=== PATIENT | female | born 1940 | race Caucasian/White ===

== ENCOUNTER 2024-10-21 15:15 | Emergency (ER) | payer MEDICARE, BC, SELFPAY ==
[2024-10-21 15:27] VITALS: BP 136/113
--- NOTE | 2024-10-21 15:36 | ED.GENMED ---
ED Provider Triage
<Coby Velázquez PA-C - Last Filed: 10/22/24 10:01>
-
Patient seen by provider in Triage?: Seen in Triage
Attestation: A medical screening examination has been initiated by a qualified medical provider. Based on the assessment performed at this time, it has been determined that an emergent medical condition may exist and the patient has been informed
that further medical evaluation and possible additional diagnostic testing may be needed.
HPI: 84yoF here for constipation. No BM x 2 days. Visiting nurse called PCP for meds but PCP told her to come here. Nothing OTC tried. Hx of dementia. Denies pain at this time.
GENERAL: Alert , in no apparent distress
EYE: No visual abnormalities.
NECK: Trachea midline
ENT: No visible abnormalities.
LUNGS: No acute respiratory distress
NEUROLOGICAL: Alert and oriented
SKIN: Skin intact. No visible changes.
MUSCULOSKELETAL: Moving extremities normally
PSYCH: Normal and appropriate interaction.
This is a medical evaluation conducted in person to initiate diagnostic evaluation and provide initial therapeutics. Please see further documentation by the treating clinician.
Will defer labs/imaging in triage given lack of complaints.
History of Present Illness
<Coby Velázquez PA-C - Last Filed: 10/22/24 10:01>
General
Chief Complaint: Bowel Problem
Time Seen by Provider: 10/21/24 16:56
<Merlene Nixon NP - Last Filed: 10/21/24 19:38>
General
Source: spouse
Exam Limitations: none
Nursing documentation reviewed up to this point in time: agreed with
History of Present Illness
History of Present Illness:
Patient to ED for suspected constipation Spouse states she has had constipation for the past year. She was recently discharged from rehab after falling and fracturing her ankle and wrist. He states he is not aware of constipation being an issue
wh8ile she was in rehab. He reports using MIralax daily but she has not passed stool in 4 days. No vomiting. Brought to ED for eval. She is pleasant and cooperative, in no distress.
Past History
<Merlene Nixon NP - Last Filed: 10/21/24 19:38>
Past History
ED Past Medical History: Psychiatric (dementia) and Other ( states she is not taking any medication. Reports she was taking lisinopril at one time but he no longer gives it to her.)
Review of Systems
<Merlene Nixon FARM MANAGEMENT TEACHER - Last Filed: 10/21/24 19:38>
Review of Systems
Allergies reviewed?: Yes
All Other Systems: ROS reviewed and negative except as documented in HPI and ROS
Constitutional: Reports no symptoms
EENT: Reports no symptoms
Respiratory: Reports no symptoms
Cardiac: Reports no symptoms
ABD/GI: Reports constipated
: Reports no symptoms
Musculoskeletal: Reports no symptoms
Skin: Reports no symptoms
Neurological: Reports no symptoms
Psychiatric: Reports no symptoms
Phy Exam
<Merlene Nixon NP - Last Filed: 10/21/24 19:38>
General Physical Exam
General Presentation: well appearing and no apparent distress
General age: appears stated age
General Skin: warm and dry
General Habitus: normal
General Mental: alert
General Hydration: appears well hydrated
Cardiovascular Exam
Cardiovascular Exam: regular rate/rhythm and no edema
Pulmonary Exam
Pulmonary Exam: lungs clear and no respiratory distress
Gastrointestinal Exam
Gastrointestinal Exam: normal bowel sounds, non tender, soft, no organomegaly and non distended
Rectal Exam: normal sphincter tone, hemorrhoids, no rectal mass and no stool
Musculoskeletal Exam
Musculoskeletal Exam: full ROM and neuro vasc intact
Skin Exam
Skin Exam: normal color, warm/dry and no rash
Psychiatric Exam
Psychiatric Exam: normal mood/affect
Course
<Coby Velázquez PA-C - Last Filed: 10/22/24 10:01>
Orders/Labs/Results
Orders:
Orders
10/21/24 17:12
Abdomen Xray - 1 View [CR Abdomen - 1 View] Urgent
Comment:
Reason For Exam: constipation
10/21/24 17:47
Complete Blood Count/With Diff Urgent
Comprehensive Metabolic Panel Urgent
10/21/24 19:03
Magnesium Citrate [Citroma] 300 ml PO ONCE ONE
Abnormal Lab Results
10/21/24
17:47
RBC 4.16 L 10^6/uL
(4.20-5.40)
MCHC 32.9 L g/dL
(33.0-37.0)
Glucose 101 H mg/dl
(70-99)
10/21/24 17:47
10/21/24 17:47
Vital Signs
Initial and Last Documented VS:
Initial Vital Signs
Pulse Resp BP Pulse Ox
90 20 136/113 99
10/21/24 15:27 10/21/24 15:27 10/21/24 15:27 10/21/24 15:27
Last Documented Vital Signs
Pulse Resp BP Pulse Ox
87 15 138/99 99
10/21/24 16:55 10/21/24 16:55 10/21/24 16:55 10/21/24 16:55
<Merlene Nixon NP - Last Filed: 10/21/24 19:38>
Orders/Labs/Results
Orders:
Orders
10/21/24 17:12
Abdomen Xray - 1 View [CR Abdomen - 1 View] Urgent
Comment:
Reason For Exam: constipation
10/21/24 17:47
Complete Blood Count/With Diff Urgent
Comprehensive Metabolic Panel Urgent
10/21/24 19:03
Magnesium Citrate [Citroma] 300 ml PO ONCE ONE
Abnormal Lab Results
10/21/24
17:47
RBC 4.16 L 10^6/uL
(4.20-5.40)
MCHC 32.9 L g/dL
(33.0-37.0)
Glucose 101 H mg/dl
(70-99)
10/21/24 17:47
10/21/24 17:47
Vital Signs
Initial and Last Documented VS:
Initial Vital Signs
Pulse Resp BP Pulse Ox
90 20 136/113 99
10/21/24 15:27 10/21/24 15:27 10/21/24 15:27 10/21/24 15:27
Last Documented Vital Signs
Pulse Resp BP Pulse Ox
87 15 138/99 99
10/21/24 16:55 10/21/24 16:55 10/21/24 16:55 10/21/24 16:55
<Merlene Nixon NP - Last Filed: 10/21/24 19:38>
*Radiology
Radiology exam reviewed: radiology read reviewed
*Critical Care Note
Total Time (30-74mins, 75-104mins- exclusive of procedures): Not Applicable
<Merlene Nixon FARM MANAGEMENT TEACHER - Last Filed: 10/21/24 19:38>
Update Note
Update Note:
Patient to ED for eval of susptected constipation. Spouse states she has not passed stool in 4 days. History of constipation. She has dementia and is a poor eater. He has difficulty getting her to drink. Labs and abdominal xrAY reviewed.
Moderate stool throughout on xray. Rectal exam = no stool in rectum. Recommend continuing miralax 17g daily. Can add senna 8.6mg q3-4 days as needed for constipation. Given 1 time dose of mag. citrate here. Will discharge home, follow up with
PCP in AM. Spouse given instructions on s/s to return to ED and he is agreeable to plan.
ED Attending Note
<Coby Velázquez PA-C - Last Filed: 10/22/24 10:01>
-
Portions of this chart may have been created with voice recognition software.� Occasional wrong word or��sound alike� substitutions may have occurred due to the inherent limitations of voice recognition software.
Discharge Plan
Departure
Patient Disposition: Home (Routine Discharge)
Date of Disposition: 10/21/24
Time of Disposition: 19:04
Patient with high blood pressure during this ER visit?: No
Condition: Good
Covid-19: Not Applicable
Discharge Problem:
Constipation
Instructions: Constipation in adults
Referrals:
Anastasia Hutchinson MD [Family Provider] - Follow up in 2-3 days
Activity Restrictions/Additional Instructions:
Continue Miralax 17g daily. May Add Senna 18.6 mg every 3-4 days as needed if no stool
Interventions
Interventions:
*General Assessment Last Done: 10/21/24 15:27
*Neglect/Abuse Screening Last Done: 10/21/24 15:27
*ED COVID-19 Vaccine History Last Done: 10/21/24 15:27
*Nursing Disposition Last Done: 10/21/24 19:28
[id number]-[id number] Assessment Last Done: 10/21/24 16:55
Discharge Date and Time
Discharge Date/Time: 10/21/24 19:28
Print Language: [place]
[2024-10-21 16:55] VITALS: BP 138/99
[2024-10-21 17:55] LABS: % Basophils 0.6 % (0-2); % Eosinophils 1.6 % (0-6); % Immature Granulocytes 0.2 % (0-0.5); % Lymphocytes 32.3 % (20.5-51.1); % Monocytes 7.3 % (1.7-9.3); Absolute Basophils 0.1 10^3/uL (0-0.2); Absolute Eosinophils 0.1 10^3/uL (0-0.7); Absolute Lymphocytes 2.8 10^3/uL (1.2-3.4); Absolute Monocytes 0.6 10^3/uL (0.1-0.6); Absolute Neutrophils 5.1 10^3/uL (1.4-6.5); Hematocrit 37.7 % (37.0-47.0); Hemoglobin 12.4 g/dL (12.0-16.0); Mean Corp Hgb Conc. 32.9 g/dL (33.0-37.0); Mean Corpuscular Hgb 29.8 pg (27.0-31.0); Mean Corpuscular Volume 90.6 fL (81.0-99.0); Mean Platelet Volume 9.6 fL (7.4-10.4); Nucleated Red Blood Cells % 0 %; Platelet Count 258 10^3/uL (130-400); Red Blood Cell Count 4.16 10^6/uL (4.20-5.40); Red Cell Dist. Width 14.1 % (11.5-14.5); White Blood Cell Count 8.8 10^3/uL (4.8-10.8)
[2024-10-21 18:15] LABS: ALT (SGPT) 11 U/L (0-35); AST (SGOT) 19 U/L (14-36); Albumin 3.7 g/dl (3.5-5.0); Alkaline Phosphatase 72 U/L (38-126); Blood Urea Nitrogen 15 mg/dl (7-17); Calcium 9.3 mg/dl (8.4-10.2); Carbon Dioxide 28 mmol/L (22-30); Chloride 101 mmol/L (98-107); Glucose 101 mg/dl (70-99); Potassium 3.9 mmol/L (3.5-5.1); Sodium 135 mmol/L (135-145); Total Bilirubin 0.6 mg/dl (0.2-1.3); Total Protein 6.7 g/dl (6.3-8.2); eGFR > 60.00
[2024-10-21] MEDS: CITROMA 300 ML PO (19:20)
== END 2024-10-21 19:28 | disposition home or self-care (01) ==
LOC: EMR 15:15
PROVIDERS: Nurse Practitioner; EMERGENCY PHYSICIAN Emergency Medicine; FAMILY PHYSICIAN Emergency Medicine
DX: K59.00 Constipation, unspecified (principal); F03.90 Unspecified dementia, unspecified severity, without behavioral disturbance, psychotic disturbance, mood disturbance, and anxiety; Z88.0 Allergy status to penicillin
CPT/HCPCS: 99283; 74018; 80053; 85025